=== PATIENT | female | born 1950 | race Caucasian/White ===

== ENCOUNTER 2023-02-12 11:58 | Day surgery (SDC) | payer MEDICARE, MEDICAID, SELFPAY ==
[2023-02-12] VITALS (9 sets, daily range): BP systolic 110–152; BP diastolic 68–95; PULSE 60–83; RESP 14–20; TEMP 36.4–36.7; O2SAT 95–100; BMI 31.0
--- NOTE | 2023-02-12 12:44 | XR_ITS ---
The [address] [address] Patient Name: KAT GARCIA MRN: [id number] date: 1950 Sex: F Assigned Patient Location: [facility] Current Patient Location: [facility] Accession/Order Number: [id number] Exam Date: 02/12/2023 12:45 Report Date: 02/12/2023 13:23 At the request of: SONYA CEDILLO Procedure: XR abdomen 1V EXAMINATION: XR abdomen 1V HISTORY: kidney stone , right lithotripsy COMPARISON: No relevant comparison available. FINDINGS: KIDNEY/URETER - RIGHT: 24 mm stone within renal pelvis. Right ureteral stent in place. 14 x 6 mm stone within mid right ureter. KIDNEY/URETER - LEFT: No visible renal or ureteral calcifications. PELVIS: No visible ureteral calcifications. Any visible calcifications favor phleboliths. BOWEL: No abnormal dilation or deviation. BONES: No acute abnormality. OTHER: Filter within the IVC. IMPRESSION: 1. Large 24 mm stone within right kidney. 2. Large 14 x 6 mm stone within mid right ureter. 3. Right ureteral stent appearing to be in good position. Electronically authenticated by: HOUSTON SINCLAIR Date: 02/12/2023 13:23
[2023-02-12] MEDS: LACTATED RINGER'S SOLUTION 1,000 ML 50 ML IV (13:26)
[2023-02-12] MEDS: GENTAMICIN SULFATE 120 MG in 0.9 % SODIUM CHLORIDE 100 ML 103 MG IV (13:26)
[2023-02-12] MEDS: CEFTRIAXONE 1,000 MG in 0.9 % SODIUM CHLORIDE 50 ML 100 MG IV (14:51)
--- NOTE | 2023-02-12 15:50 | PM.URSON ---
Urology Surgery Operative Note Operative Note Procedure Date: 02/12/23 Time Out Performed: yes Pre-op Diagnosis: Right ureteral stone Post-op Diagnosis: Same Procedures performed: Right extracorporeal shock wave lithotripsy Anesthesia: GETA (LMA, Dr. 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 Juarez 01/03/23 presents for definitive stone treatment. The patient was evaluated in clinic and deemed a candidate for right extracorporeal shock wave lithotripsy. Eliquis was held 4 days preop. Risks were discussed to include but not limited to bleeding, pain, infection, damage to surrounding structures, inability to treat the stone, residual fragments, obstruction and need for additional procedures. Detailed description of Procedure: After informed consent was obtained, the patient was brought to the operating room and placed on the lithotripsy bed in supine position. Sequential compression devices were placed on bilateral lower extremities. The patient received the appropriate dose of preoperative IV antibiotics (ceftriaxone and gentamicin based on recent culture) and general anesthesia LMA was induced. An operative time out was performed confirming the patient's identity, procedure, laterality and safety checks. The patient was positioned with the Siemens Modularis Variostar lithotripter head on the right lower abdomen. The ureteral stone was triangulated using fluoroscopy. A total of 3000 shocks were provided and the stone was seen to fragment very well. The procedure was concluded, patient was awakened from anesthesia and sent to PACU in stable condition. The patient tolerated the procedure well without complications. Plan: Discharge back to nursing facility with strainer and tamsulosin. Follow up in 2-3 weeks with [facility] to discuss treatment of known right kidney stone, possible stent exchange. Other Provider present: No Attending Doc Confirm Attending Attestation: Yes
--- NOTE | 2023-02-12 16:47 | PC.NURSE ---
Rodriguez patent and drainang clear dark watermelon in tubing
--- NOTE | 2023-02-12 16:49 | PC.NURSE ---
Report phoned to senior living by Johanna Terrazas RN
== END 2023-02-12 16:49 | disposition home or self-care (01) ==
PROVIDERS: Visit Provider Urology
PROC: (CPT 50590; principal; 2023-02-12 14:20)
DX: N20.0 Calculus of kidney (principal); Z79.01 Long term (current) use of anticoagulants; I48.91 Unspecified atrial fibrillation; I25.10 Atherosclerotic heart disease of native coronary artery without angina pectoris; Z87.440 Personal history of urinary (tract) infections; G40.909 Epilepsy, unspecified, not intractable, without status epilepticus; I50.9 Heart failure, unspecified; I11.0 Hypertensive heart disease with heart failure; I73.9 Peripheral vascular disease, unspecified; Z99.3 Dependence on wheelchair; I69.354 Hemiplegia and hemiparesis following cerebral infarction affecting left non-dominant side; Z90.710 Acquired absence of both cervix and uterus; Z79.899 Other long term (current) drug therapy; N31.9 Neuromuscular dysfunction of bladder, unspecified; N30.21 Other chronic cystitis with hematuria
CPT/HCPCS: 50590; 74018; J2704

== ENCOUNTER 2023-06-04 12:23 | Day surgery (SDC) | payer MEDICARE, MEDICAID, SELFPAY ==
[2023-06-04] VITALS (8 sets, daily range): BP systolic 128–153; BP diastolic 57–68; PULSE 60–83; RESP 12–18; TEMP 36.2–36.6; O2SAT 94–99; BMI 31.4
--- NOTE | 2023-06-04 12:00 | XR_ITS ---
The [address] [address] Patient Name: KAT GARCIA MRN: [id number] date: 1950 Sex: F Assigned Patient Location: [facility] Current Patient Location: Accession/Order Number: [id number] Exam Date: 06/04/2023 12:45 Report Date: 06/05/2023 11:25 At the request of: SONYA CEDILLO Procedure: XR abdomen 1V EXAMINATION: XR abdomen 1V HISTORY: KIDNEY STONES COMPARISON: XR abdomen 02/12/2023 FINDINGS: KIDNEY/URETER - RIGHT: Approximately 1.7 cm stone projecting over superior pole of kidney. Right ureteral stent appearing in good position. KIDNEY/URETER - LEFT: No visible renal or ureteral calcifications. PELVIS: No convincing ureteral stones. BOWEL: No abnormal dilation or deviation. BONES: No acute abnormality. OTHER: Negative. No abnormal gaseous collections. XR/XR abdomen 1V IMPRESSION: 1. Examination is limited by patient body habitus. 2. Large proximally 17 mm stone within right kidney. 3. Right ureteral stent. Electronically authenticated by: HOUSTON SINCLAIR Date: 06/05/2023 11:25
--- NOTE | 2023-06-04 13:29 | PC.NURSE ---
has a left gluteal fold decubiti; states she saw the wound doctor this AM
[2023-06-04] MEDS: LACTATED RINGER'S SOLUTION 1,000 ML 50 ML IV (13:30)
[2023-06-04] MEDS: CEFAZOLIN SODIUM/DEXTROSE,ISO 2 GM/50 ML PIGGYBACK IV (13:59)
--- NOTE | 2023-06-04 14:52 | P.URON_ITS ---
Urology Surgery Operative Note Operative Note Procedure Date: 06/04/23 Time Out Performed: yes Pre-op Diagnosis: 1. Right kidney stones > 2 cm burden Post-op Diagnosis: same as pre-op Procedures performed: Staged right extracorporeal shock wave lithotripsy Anesthesia: General-LMA (Dr. Alarcon ) Primary Surgeon: Adri Gonzalez Complications: none Estimated blood loss (mL): 1 Findings: Radiopaque stones in the right kidney and renal pelvis within stent loop underwent uneventful shockwave lithotripsy mainly to stones within loop, residual stones within kidney remain that were not fully treated. 18Fr catheter exchanged Specimens: none Drains: 18Fr arguello catheter, 10 cc in balloon Indications for Procedures: 73 yo female with a history of large stone burden including right kidney and ureter s/p stent and ESWL, last 04/15/2023 with stent exchange. The patient was evaluated in clinic and deemed a candidate for right extracorporeal shock wave lithotripsy, 2nd stage given large stone burden. Risks were discussed to include but not limited to bleeding, pain, infection, damage to surrounding structures, inability to treat the stone, residual fragments, obstruction and need for additional procedures. Detailed description of Procedure: After informed consent was obtained, the patient was brought to the operating room and placed on the lithotripsy bed in supine position. Sequential compression devices were placed on bilateral lower extremities. The patient received the appropriate dose of preoperative IV antibiotics and general anesthesia LMA was induced. An operative time out was performed confirming the patient's identity, procedure, laterality and safety checks. The patient was positioned with the Siemens Modularis Lithotripter head on the right flank. The stone was triangulated using fluoroscopy. A total of 3000 shocks were provided (2000 to stone within loop and 1000 to adjacent renal stone) and the stones were seen to fragment well. The indwelling 18fr catheter was removed, a new 18Fr silicone was inserted without difficulty under sterile technique, 10 cc in balloon, return of hematuria as expected. Indwelling catheter removed was encrusted at the tip. The procedure was concluded and patient was awakened from anesthesia in stable condition. The patient tolerated the procedure well without complications. Plan: Discharge home with strainer and tamsulosin. Follow up in 3 weeks with [facility], will call with results. If residual stones, will schedule right ureteroscopy with possible laser lithotripsy/stone extraction, stent exchange. Again advise skilled nursing to change arguello catheter every 4 weeks. Other Provider present: No Post Operative care instructions: see dc instructions
== END 2023-06-04 16:00 | disposition home or self-care (01) ==
PROVIDERS: Visit Provider Urology
PROC: (CPT 50590; principal; 2023-06-04 13:30)
DX: N20.0 Calculus of kidney (principal); I10 Essential (primary) hypertension; Z79.01 Long term (current) use of anticoagulants; I48.91 Unspecified atrial fibrillation; I25.10 Atherosclerotic heart disease of native coronary artery without angina pectoris; I50.9 Heart failure, unspecified; F32.A Depression, unspecified; N30.21 Other chronic cystitis with hematuria; N31.9 Neuromuscular dysfunction of bladder, unspecified; N39.498 Other specified urinary incontinence; Z87.440 Personal history of urinary (tract) infections; G40.909 Epilepsy, unspecified, not intractable, without status epilepticus; I73.9 Peripheral vascular disease, unspecified; Z99.3 Dependence on wheelchair; I69.354 Hemiplegia and hemiparesis following cerebral infarction affecting left non-dominant side; Z87.442 Personal history of urinary calculi; Z90.710 Acquired absence of both cervix and uterus; Z79.899 Other long term (current) drug therapy
CPT/HCPCS: 50590; 74018; J2704

== ENCOUNTER 2023-07-10 14:48 | Outpatient (OUT) | payer MEDICARE, MEDICAID, SELFPAY | END 2023-07-10 14:49 | disposition home or self-care (01) | LOC: PST 14:49 | PROVIDERS: Visit Provider Urology | DX: Z01.818 Encounter for other preprocedural examination (principal); N20.2 Calculus of kidney with calculus of ureter ==

== ENCOUNTER 2023-07-16 12:01 | Day surgery (SDC) | payer MEDICARE, MEDICAID, SELFPAY ==
[2023-07-16] VITALS (13 sets, daily range): BP systolic 119–160; BP diastolic 65–90; PULSE 60–118; RESP 11–26; TEMP 36.1–36.4; O2SAT 95–97; BMI 33.7
[2023-07-16] MEDS: LACTATED RINGER'S SOLUTION 1,000 ML 50 ML IV ×2 (13:49→14:49)
[2023-07-16] MEDS: CEFAZOLIN SODIUM/DEXTROSE,ISO 2 GM/50 ML PIGGYBACK IV (13:50)
[2023-07-16] MEDS: IOHEXOL 300 MG/ML - 50 ML BTL INJ (14:46)
--- NOTE | 2023-07-16 15:38 | PM.URSON ---
Urology Surgery Operative Note Operative Note Procedure Date: 07/16/23 Time Out Performed: yes Pre-op Diagnosis: 1. Right kidney stones 2. Right ureteral stones Post-op Diagnosis: same as pre-op Procedures performed: Cystoscopy, right retrograde pyelogram, ureteroscopy with laser lithotripsy/stone extraction, stent exchange Arguello exchange Anesthesia: General-LMA (Dr. Matheus Bourgeois ) Primary Surgeon: Adri Gonzalez Complications: none Estimated blood loss (mL): 1 Findings: R RPG- pelviectasis, no blunting of calyces or extravasation of contrast. Large burden of stone gravel 1-4 mm in right renal pelvis and upper pole. Larger fragments basket extracted. Remainder laser lithotripsied into tiny fragments/dust (< 1 mm). Multiple stone fragments in proximal ureter basket extracted. Existing sacral decubitus ulcers noted Small bladder capacity, 2+ trabeculations with small diverticuli on lateral mallory. Patulous UOs BL. Specimens: right kidney stones Drains: 4.8Fr x 22-32 cm JJ right ureteral stent on string attached to 18Fr silicone catheter, 30cc in balloon. Incision: none Indications for Procedures: 73 year old female residential wheelchair bound patient, arguello dependent, on Eliquis for history of stroke, undergoing staged treatment for large right stone burden and history of urosepsis: 2.3 cm right kidney stones and 13 mm right mid ureteral stone s/p stent placement 01/03/23, R ESWL x 2 with recent stent exchange here for completion stone treatment via right ureteroscopy with laser lithotripsy/stone extraction, stent exchange. She declined PCNL. Risks were discussed including but not limited to bleeding, pain, infection, damage to surrounding structures, inability to treat the stone/place a stent, and need for additional procedures. The patient understands the stent is not permanent and needs to be removed or exchanged within 3 months to prevent encrustation, infection, invasive procedures and/or permanent renal damage. Detailed description of Procedure: After informed consent was obtained, the patient was brought to the operating room and transferred onto the operating table in supine position. Sequential compression devices were placed on bilateral lower extremities. The patient received the appropriate dose of preoperative IV antibiotics and general anesthesia LMA was induced. They were positioned in modified dorsolithotomy with the appropriate pressure points padded, prepped, and draped in the usual sterile fashion for this procedure. Indwelling 18Fr 2way, 30 cc balloon arguello catheter removed prior to prep, significant encrustation around end noted. An operative safety timeout was performed confirming the patient's identity, laterality and procedure, and all present agreed to proceed. I began by inserting a 22 Samoan rigid cystoscope with 30 degree lens into the patient's urethra and bladder without difficulty. There were no bladder tumors, lesions. Stone fragments and debris noted. Bilateral ureteral orifices were patulous, orthotopic and patent. I turned my attention to the right ureteral orifice and the indwelling stent was brought to the meatus with graspers, sensor wire inserted into stent up to renal pelvis confirmed on fluoroscopy, and stent removed without difficulty. An 11/13 Samoan by 36 cm ureteral access sheath was inserted over the wire in a sequential fashion to gain access to the proximal ureter without difficulty. Next a flexible ureteroscope was inserted through the sheath and advanced to the ureter under fluoroscopic guidance until the stone was reached. 1.8 zero tip basket used to remove stone fragments. Renoscopy was performed with findings as above. Larger fragments in upper pole and pelvis basket extracted. A 200 ?m Thulium/YAG laser fiber was used to dust the existing gravel into tiny fragments (size of laser fiber or less). After the stone was adequately treated, a full renoscopy was performed confirming no significant residual stones or fragments remained. Contrast was injected to assist with mapping for the renoscopy. The wire was reinserted and a pull down ureteroscopy was performed, removing any remaining ureteral stones with basket. A 4.8Fr x 22-32cm JJ variable length ureteral stent on string was advanced over the wire, noting adequate curl in the renal pelvis and bladder on fluoroscopic and direct visualization. The bladder was irrigated until clear and inspected one final time to ensure adequate position of stent and no undue trauma to the bladder was done. The stones were sent for pathology and the cystoscope was removed. A new 18Fr 2-way arguello catheter was inserted into the bladder without difficulty, 30 cc in balloon. String was secured to catheter with Tegaderm, catheter placed to drainage bag. The patient tolerated the procedure well without complication. The patient was awakened from anesthesia and sent to PACU in stable condition. Plan: Discharge to residential. Follow up in 1 week for office stent removal by the string and arguello exchange. Maddison sharp written for residential to provide prior to stent removal. Follow up 6 wks after with renal US and [facility]. Other Provider present: No Post Operative care instructions: See discharge instructions Attending Doc Confirm Attending Attestation: Yes
--- NOTE | 2023-07-16 15:44 | PC.NURSE ---
118 tanzanian arguello was changed out in surgery. Urine is oink tinged upon arrival and continues at tis time to be pink tinged
[2023-07-30 02:07] LABS: Calcium Oxalate Monohydrate 10 % (.); Calcium phosphate (hydroxyl) 90 % (.)
== END 2023-07-16 16:25 | disposition home or self-care (01) ==
PROVIDERS: Visit Provider Urology
PROC: (CPT 52356; principal; 2023-07-16 13:30)
DX: N13.2 Hydronephrosis with renal and ureteral calculous obstruction (principal); L89.159 Pressure ulcer of sacral region, unspecified stage; N32.89 Other specified disorders of bladder; Z79.01 Long term (current) use of anticoagulants; Z86.73 Personal history of transient ischemic attack (TIA), and cerebral infarction without residual deficits; I48.91 Unspecified atrial fibrillation; K21.9 Gastro-esophageal reflux disease without esophagitis; I50.9 Heart failure, unspecified; I11.0 Hypertensive heart disease with heart failure; I73.9 Peripheral vascular disease, unspecified; R56.9 Unspecified convulsions; R53.1 Weakness; Z87.891 Personal history of nicotine dependence; F32.A Depression, unspecified; N31.9 Neuromuscular dysfunction of bladder, unspecified; E78.5 Hyperlipidemia, unspecified; I48.0 Paroxysmal atrial fibrillation; Z87.440 Personal history of urinary (tract) infections; I25.10 Atherosclerotic heart disease of native coronary artery without angina pectoris; Z90.710 Acquired absence of both cervix and uterus; N30.21 Other chronic cystitis with hematuria; E66.01 Morbid (severe) obesity due to excess calories; Z68.31 Body mass index [BMI] 31.0-31.9, adult; Z90.49 Acquired absence of other specified parts of digestive tract
CPT/HCPCS: 52356; 74420; 82365; 99999; J2704; Q9967